=== PATIENT | female | born 1945 | race Caucasian/White ===

== ENCOUNTER 2017-10-12 07:49 | Outpatient (CLI) | payer MEDICARE, MEDICAID | END 2017-10-12 07:50 | disposition home or self-care (01) | LOC: BICULT 07:49 | PROVIDERS: ATTEND Internal Medicine Gastroenterology | DX: K76.0 Fatty (change of) liver, not elsewhere classified (principal); K74.60 Unspecified cirrhosis of liver; R13.10 Dysphagia, unspecified; Z90.49 Acquired absence of other specified parts of digestive tract | CPT/HCPCS: 76705 ==

== ENCOUNTER 2017-11-02 10:14 | Outpatient (CLI) | payer MEDICARE, MEDICAID | END 2017-11-02 10:15 | disposition home or self-care (01) | LOC: BICMAMMO 10:14 | PROVIDERS: ATTEND Family Medicine | DX: Z12.31 Encounter for screening mammogram for malignant neoplasm of breast (principal); R92.1 Mammographic calcification found on diagnostic imaging of breast | CPT/HCPCS: 77063; 77067 ==

== ENCOUNTER 2018-02-28 10:37 | Outpatient (CLI) | payer MEDICARE, MEDICAID ==
--- NOTE | 2018-02-28 12:49 | ULT ---
BILATERAL RENAL ULTRASOUND: HISTORY: Dysuria. FINDINGS: The right kidney measures 9.3 cm in length and the left kidney measures 9.6 cm. No focal mass or hyd ronephrosis is seen on either side. Cortical echogenicity and thickness is normal. The urinary blad kristine is unremarkable. Prevoid volume of 97 cc and complete emptying noted on the postvoid scan. IMPRESSION: Unremarkable exam. POS: OFF
== END 2018-02-28 10:38 | disposition home or self-care (01) ==
LOC: SCSULT 10:37
PROVIDERS: ATTEND Urology
DX: R30.0 Dysuria (principal); Z87.440 Personal history of urinary (tract) infections
CPT/HCPCS: 76770

== ENCOUNTER 2018-07-12 19:30 | Outpatient (CLI) | payer MEDICARE, MEDICAID | END 2018-07-12 19:31 | disposition home or self-care (01) | LOC: SLEEPLAB 19:30 | PROVIDERS: ATTEND Family Medicine | DX: G47.33 Obstructive sleep apnea (adult) (pediatric) (principal); R53.83 Other fatigue; R06.83 Snoring; I10 Essential (primary) hypertension; F41.9 Anxiety disorder, unspecified; G47.10 Hypersomnia, unspecified; K21.9 Gastro-esophageal reflux disease without esophagitis; E11.9 Type 2 diabetes mellitus without complications; G47.00 Insomnia, unspecified; G47.61 Periodic limb movement disorder; Z68.28 Body mass index [BMI] 28.0-28.9, adult | CPT/HCPCS: 95810 ==

== ENCOUNTER 2018-08-08 08:09 | Outpatient (CLI) | payer MEDICARE, MEDICAID ==
--- NOTE | 2018-08-08 09:43 | ULT ---
HEPATIC ULTRASOUND: Indications: Cirrhosis. FINDINGS: Patient is post cholecystectomy. The liver is echogenic consistent with history of cirrhosis. No focal mass lesion is identified. Color doppler and spectral analysis performed of the hepatic ducts. There is normal blood flow seen i n the portal veins, hepatic artery, splenic artery and splenic veins. The spleen is unremarkable and normal size measuring 7-8 cm. Pancreas is partially imaged and appears unremarkable as visualized. Kidneys are not evaluated. Aorta and IVC are not imaged. Common duct is normal caliber is 4 mm. IMPRESSION: The liver is mildly echogenic consistent with the history of cirrhosis. Hepatic doppler studies show normal hepatic blood flow. POS: [facility]
== END 2018-08-08 08:10 | disposition home or self-care (01) ==
LOC: SCSULT 08:09
PROVIDERS: ATTEND Internal Medicine Gastroenterology
DX: K74.60 Unspecified cirrhosis of liver (principal)
CPT/HCPCS: 76705

== ENCOUNTER 2019-03-27 09:39 | Outpatient (CLI) | payer MEDICARE, MEDICAID ==
--- NOTE | 2019-03-27 12:08 | ULT ---
HEPATIC ULTRASOUND WITH DOPPLER: Date: 03/27/19 INDICATION: Fatty liver. Cirrhosis. FINDINGS: Liver is echogenic, consistent with fatty infiltration. The liver is somewhat heterogeneous with nodu lar appearing areas. Liver is enlarged, measuring 17-18 cm. Patient is post cholecystectomy. Common bile duct is normal caliber at 4 mm. The spleen is unremarkab le in size and appearance. Visualized aorta unremarkable. The pancreas is mostly obscured. Color Doppler and spectral analysis performed on the hepatic vessels. Portal veins, hepatic veins, he patic artery, splenic vein, and splenic artery all show normal blood flow with spectral analysis. IMPRESSION: Liver is enlarged, echogenic, and mildly heterogeneous. Normal blood flow is seen in the hepatic vess els. POS: OFF
== END 2019-03-27 09:40 | disposition home or self-care (01) ==
LOC: SCSULT 09:39
PROVIDERS: ATTEND Internal Medicine Gastroenterology
DX: K74.60 Unspecified cirrhosis of liver (principal); K76.0 Fatty (change of) liver, not elsewhere classified; R16.0 Hepatomegaly, not elsewhere classified; K76.9 Liver disease, unspecified
CPT/HCPCS: 76705

== ENCOUNTER 2019-11-29 10:30 | Outpatient (CLI) | payer MEDICARE, MEDICAID ==
--- NOTE | 2019-11-29 15:01 | ULT ---
HEPATIC ULTRASOUND WITH DOPPLER: 11/29/19 INDICATIONS: Fatty liver. The patient is status post cholecystectomy. The common bile duct is normal caliber measured at 5 to 6 mm. The liver is mildly enlarged measuring 17 cm. The liver shows increased echogenicity consistent with fatty infiltration. No focal liver mass lesion. Doppler studies with spectral analysis performed on the hepatic vessels. Normal flow is seen in the h epatic veins, portal veins, hepatic artery, and splenic vein. The pancreas is obscured. IMPRESSION: Borderline hepatomegaly. Increased hepatic echogenicity consistent with hepatic steatosis. Doppler st udy showed normal hepatopetal blood flow. POS: [facility]
== END 2019-11-29 10:31 | disposition home or self-care (01) ==
LOC: BICULT 10:30 → SCSULT 10:31
PROVIDERS: ATTEND Internal Medicine Gastroenterology
DX: K76.0 Fatty (change of) liver, not elsewhere classified (principal); K21.9 Gastro-esophageal reflux disease without esophagitis; R16.0 Hepatomegaly, not elsewhere classified; R93.2 Abnormal findings on diagnostic imaging of liver and biliary tract
CPT/HCPCS: 76705

== ENCOUNTER 2020-06-16 11:49 | Outpatient (CLI) | payer MEDICARE, MEDICAID ==
--- NOTE | 2020-06-16 14:23 | MMO ---
Bilateral MAMMO Bilat Screen [facility]. CLINICAL HISTORY: Patient is 75 years old and is seen for screening. The patient has no family history of breast cancer. The patient has no personal history of cancer. The patient has a history of left Excisional Biopsy in ? - benign. VIEWS: The views performed were: bilateral craniocaudal with tomosynthesis and bilateral mediolateral oblique with tomosynthesis. FILMS COMPARED: The present examination has been compared to prior imaging studies performed at [facility] on 08/15/2014, 08/19/2015, 08/25/2016 and 11/02/2017. This study has been interpreted with the assistance of computer-aided detection. MAMMOGRAM FINDINGS: The breasts are heterogeneously dense, which could obscure a lesion on mammography. Benign calcifications are noted bilaterally. There are no suspicious masses, suspicious calcifications, or new areas of architectural distortion. IMPRESSION: THERE IS NO MAMMOGRAPHIC EVIDENCE OF MALIGNANCY. A ROUTINE FOLLOW-UP MAMMOGRAM IN 1 YEAR IS RECOMMENDED. THE RESULTS OF THIS EXAM WERE SENT TO THE PATIENT. ACR BI-RADS Category 2 - Benign finding MAMMOGRAPHY NOTE: 1. A negative mammogram report should not delay a biopsy if a dominant of clinically suspicious mass is present. 2. Approximately 10% to 15% of breast cancers are not detected by mammography. 3. Adenosis and dense breasts may obscure an underlying neoplasm. Reported by: CLARK ABDUL MD Electonically Signed: [id number]
== END 2020-06-16 11:50 | disposition home or self-care (01) ==
LOC: BICMAMMO 11:49
PROVIDERS: ATTEND Family Medicine
DX: Z12.31 Encounter for screening mammogram for malignant neoplasm of breast (principal); Z91.89 Other specified personal risk factors, not elsewhere classified
CPT/HCPCS: 77063; 77067

== ENCOUNTER 2020-11-13 07:47 | Outpatient (CLI) | payer MEDICARE, MEDICAID | END 2020-11-13 07:48 | disposition home or self-care (01) | LOC: BICULT 07:47 | PROVIDERS: ATTEND Physician Assistant Medical | DX: R10.13 Epigastric pain (principal); K74.60 Unspecified cirrhosis of liver; K21.9 Gastro-esophageal reflux disease without esophagitis; R11.0 Nausea; R93.5 Abnormal findings on diagnostic imaging of other abdominal regions, including retroperitoneum | CPT/HCPCS: 93975 ==

== ENCOUNTER 2021-07-29 07:33 | Outpatient (CLI) | payer MEDICARE, MEDICAID | END 2021-07-29 07:34 | disposition home or self-care (01) | LOC: ULT 07:33 | PROVIDERS: ATTEND Physician Assistant Medical | DX: K74.60 Unspecified cirrhosis of liver (principal); R93.2 Abnormal findings on diagnostic imaging of liver and biliary tract; Z90.49 Acquired absence of other specified parts of digestive tract | CPT/HCPCS: 76705 ==

== ENCOUNTER 2021-12-21 10:50 | Outpatient (CLI) | payer MEDICARE, MEDICAID | END 2021-12-21 10:51 | disposition home or self-care (01) | LOC: BICULT 10:50 | PROVIDERS: ATTEND Physician Assistant Medical | DX: K74.60 Unspecified cirrhosis of liver (principal); K21.9 Gastro-esophageal reflux disease without esophagitis; Z12.11 Encounter for screening for malignant neoplasm of colon | CPT/HCPCS: 76705 ==

== ENCOUNTER 2021-12-28 11:51 | Outpatient (CLI) | payer MEDICARE, MEDICAID | END 2021-12-28 11:52 | disposition home or self-care (01) | LOC: BICRAD 11:51 | PROVIDERS: ATTEND Family Medicine | DX: M25.531 Pain in right wrist (principal); R07.89 Other chest pain ==

== ENCOUNTER 2022-08-14 02:40 | Inpatient (IN) | payer OTHER, MEDICAID ==
[2022-08-14] MEDS ORDERED: Dextrose 50% Abboject 50 ML SYRINGE SLOW IVP PRN (04:03)
[2022-08-14] MEDS ORDERED: Ondansetron ODT 4 MG TAB PO PRN (04:03)
[2022-08-14] MEDS ORDERED: Morphine 2 MG/ML VIAL SLOW IVP PRN (04:03)
[2022-08-14] MEDS ORDERED: hydrALAZINE 20 MG/ML VIAL SLOW IVP PRN (04:03)
[2022-08-14] MEDS ORDERED: Insulin Regular 300 UNITS/3 ML VIAL SC PRN ×2 (04:03)
[2022-08-14] MEDS ORDERED: Ipratropium/Albuterol 3 ML NEB NEB PRN (04:03)
[2022-08-14] MEDS ORDERED: Dextrose 5% in Water 1,000 ML IV PRN (04:03)
[2022-08-14 04:07] VITALS: BMI 21.7
[2022-08-14] MEDS ORDERED: Cyclobenzaprine 10 MG TAB PO PRN (04:14)
[2022-08-14] MEDS: Sodium Chloride 0.9% 1,000 ML IV SCH ×2 (04:27→17:56)
[2022-08-14] MEDS ORDERED: Promethazine HCl 25 MG/ML VIAL IM PRN (04:30)
[2022-08-14] MEDS: Ondansetron PF 4 MG/2 ML Vial IVP PRN (04:37)
[2022-08-14] MEDS: traMADol HCl 50 MG TAB PO SCH ×4 (04:56→23:27)
[2022-08-14] MEDS: Acetaminophen 500 MG TAB PO SCH ×4 (04:56→23:27)
[2022-08-14] MEDS: Morphine 4 MG/ML VIAL SLOW IVP PRN (05:50)
[2022-08-14 06:15] LABS: Hemoglobin A1c 6.2 % (4.0-6.0)
[2022-08-14 06:16] LABS: #Basophils 0.1 thou/uL (0.0-0.2); #Lymphocytes 1.8 thou/uL (1.20-3.40); #Monocytes 1.2 thou/uL (0.11-0.59); #Neutrophils 11.4 thou/uL (1.40-6.50); %Basophils 0.6 % (0.0-1.0); %Eosinophils 0.1 % (0.0-10.0); %Lymphocytes 12.5 % (21.0-51.0); %Monocytes 8.2 % (0.0-10.0); %Neutrophils 78.5 % (42.0-75.0); Hemoglobin 13.6 g/dL (12.0-16.0); Mean Corpuscular HGB CONC 33.6 g/dL (32.0-36.0); Mean Corpuscular Hemoglobin 33.7 pg (27.0-31.0); Platelet Count 211 10x3/uL (130-400); RBC Distribution Width 11.3 % (11.5-14.5); Red Blood Cell (RBC) Count 4.03 mill/uL (4.20-5.40); White Blood Cell (WBC) Count 14.6 10x3/uL (4.8-10.8)
[2022-08-14 06:34] LABS: Anion Gap 16 mmol/L (10-20); BUN (Urea Nitrogen) 24 mg/dL (9.8-20.1); Calc. Creatinine Clearance 36 mL/min (70-130); Calcium 9.3 mg/dL (7.8-10.44); Carbon Dioxide 18 mmol/L (23-31); Chloride 104 mmol/L (98-107); Estimated GFR 37; Glucose 234 mg/dL (83-110); Magnesium 2.1 mg/dL (1.6-2.6); Phosphorus 2.3 mg/dL (2.3-4.7); Sodium 134 mmol/L (136-145)
[2022-08-14] MEDS ORDERED: FLU VACC QS2022-23(65YR UP)/PF 240 MCG/0.7 ML SYRINGE IM ONE (09:00)
[2022-08-14] MEDS ORDERED: Famotidine 20 MG TAB PO SCH (09:00)
[2022-08-14] MEDS: hydrALAZINE 25 MG TAB PO SCH ×2 (10:35→21:13)
[2022-08-14] MEDS: Senokot S 8.6-50 MG TAB PO SCH ×2 (10:36→21:15)
[2022-08-14] MEDS ORDERED: Tranexamic Acid 1,000 MG/10 ML VIAL ONE (11:28)
[2022-08-14] MEDS ORDERED: CEFAZOLIN 2 GM VIAL ONE (11:28)
[2022-08-14] MEDS ORDERED: Sodium Chloride 0.9% 100 ML ONE ×2 (11:28→11:29)
[2022-08-14] MEDS ORDERED: Vancomycin (BATCH) 1.5 GRAM/300 ML BAG ONE (11:29)
[2022-08-14] MEDS ORDERED: fentaNYL PF 100 MCG/2 ML SYRINGE ONE (12:09)
[2022-08-14] MEDS ORDERED: Glycopyrrolate 0.2 MG/ML 5 ML SYRINGE ONE (12:18)
[2022-08-14] MEDS ORDERED: diphenhydrAMINE 50 MG/ML VIAL ONE (12:18)
[2022-08-14] MEDS ORDERED: PHENYLEPHRINE-NS 100 MCG/ML 10 ML SYRINGE ONE (12:18)
[2022-08-14] MEDS ORDERED: PROPOFOL 200 MG/20 ML VIAL ONE (12:18)
[2022-08-14] MEDS ORDERED: Rocuronium Bromide 10 MG/ML (10ML VIAL) ONE (12:18)
[2022-08-14] MEDS ORDERED: Ondansetron PF 4 MG/2 ML Vial ONE (12:18)
[2022-08-14] MEDS ORDERED: Ketorolac Tromethamine 30 MG/ML VIAL ONE (12:18)
[2022-08-14] MEDS ORDERED: NEOSTIGMINE 3 MG/3 ML SYR 3 MG/3 ML SYRINGE ONE (12:18)
[2022-08-14] MEDS ORDERED: Ondansetron HCl/PF 4 MG/2 ML Vial IVP PRN (14:18)
[2022-08-14] MEDS ORDERED: PACU-Morphine 4MG/ML VIAL SLOW IVP PRN (14:18)
[2022-08-14] MEDS ORDERED: Fentanyl 100 MCG/2 ML VIAL ONE (14:49)
[2022-08-14] MEDS: Ferrous Sulfate 325 MG TAB PO SCH (16:14)
[2022-08-14] MEDS: Ascorbic Acid 500 mg Chewable Tablet PO SCH (21:15)
[2022-08-14] MEDS: Montelukast Sodium 10 mg Tablet PO SCH (21:15)
[2022-08-14] MEDS: CEFAZOLIN 2 GM in Sodium Chloride 0.9% 100 ML IVPB SCH (21:16)
[2022-08-15] MEDS: Acetaminophen 500 MG TAB PO SCH ×4 (04:57→22:19)
[2022-08-15] MEDS: traMADol HCl 50 MG TAB PO SCH ×4 (04:58→21:41)
[2022-08-15] MEDS: CEFAZOLIN 2 GM in Sodium Chloride 0.9% 100 ML IVPB SCH (04:58)
[2022-08-15 05:56] LABS: #Basophils 0.1 thou/uL (0.0-0.2); #Eosinphils 0.1 thou/uL (0.0-0.7); #Lymphocytes 2.3 thou/uL (1.20-3.40); #Monocytes 1.4 thou/uL (0.11-0.59); #Neutrophils 7.9 thou/uL (1.40-6.50); %Basophils 0.6 % (0.0-1.0); %Lymphocytes 19.3 % (21.0-51.0); %Monocytes 12.2 % (0.0-10.0); %Neutrophils 66.9 % (42.0-75.0); Hemoglobin 11.3 g/dL (12.0-16.0); Mean Corpuscular HGB CONC 33.7 g/dL (32.0-36.0); Mean Corpuscular Hemoglobin 34.3 pg (27.0-31.0); Mean Platelet Volume 7.8 fL (7.4-10.4); Platelet Count 183 10x3/uL (130-400); RBC Distribution Width 11.4 % (11.5-14.5); Red Blood Cell (RBC) Count 3.31 mill/uL (4.20-5.40); White Blood Cell (WBC) Count 11.7 10x3/uL (4.8-10.8)
[2022-08-15 06:22] LABS: Anion Gap 14 mmol/L (10-20); BUN (Urea Nitrogen) 16 mg/dL (9.8-20.1); Calc. Creatinine Clearance 42 mL/min (70-130); Calcium 8.4 mg/dL (7.8-10.44); Carbon Dioxide 15 mmol/L (23-31); Chloride 109 mmol/L (98-107); Estimated GFR 45; Glucose 136 mg/dL (83-110); Phosphorus 2.7 mg/dL (2.3-4.7); Potassium 4.3 mmol/L (3.5-5.1); Sodium 134 mmol/L (136-145)
[2022-08-15 06:53] LABS: Magnesium 1.9 mg/dL (1.6-2.6)
[2022-08-15] MEDS ORDERED: PHOS-NAK 1 PKT PACK PO SCH (08:15)
[2022-08-15] MEDS: Ferrous Sulfate 325 MG TAB PO SCH ×2 (08:35→17:01)
[2022-08-15] MEDS: Senokot S 8.6-50 MG TAB PO SCH ×2 (08:35→21:41)
[2022-08-15] MEDS: hydrALAZINE 25 MG TAB PO SCH ×2 (08:38→22:32)
[2022-08-15] MEDS: traMADol HCl 50 MG TAB PO PRN ×2 (10:59→17:01)
[2022-08-15] MEDS: Morphine 4 MG/ML VIAL SLOW IVP PRN (14:05)
[2022-08-15] MEDS: Gabapentin 100 MG CAP PO SCH ×2 (17:00→21:40)
[2022-08-15] MEDS: Ascorbic Acid 500 mg Chewable Tablet PO SCH (21:40)
[2022-08-15] MEDS: Rosuvastatin 20 MG TAB PO SCH (21:42)
[2022-08-15] MEDS: Montelukast Sodium 10 mg Tablet PO SCH (21:43)
[2022-08-15] MEDS: Pentazocine HCl/Naloxone HCl 50/0.5 MG TAB PO SCH (22:37)
[2022-08-16] MEDS: traMADol HCl 50 MG TAB PO SCH ×4 (04:15→22:18)
[2022-08-16] MEDS: Acetaminophen 500 MG TAB PO SCH ×4 (04:16→22:19)
[2022-08-16 05:16] LABS: #Basophils 0.1 thou/uL (0.0-0.2); #Eosinphils 0.3 thou/uL (0.0-0.7); #Lymphocytes 2.9 thou/uL (1.20-3.40); #Monocytes 1.8 thou/uL (0.11-0.59); #Neutrophils 8.1 thou/uL (1.40-6.50); %Basophils 0.7 % (0.0-1.0); %Eosinophils 2.5 % (0.0-10.0); %Lymphocytes 21.6 % (21.0-51.0); %Monocytes 13.6 % (0.0-10.0); %Neutrophils 61.5 % (42.0-75.0); Hemoglobin 10.4 g/dL (12.0-16.0); Mean Corpuscular HGB CONC 33.4 g/dL (32.0-36.0); Mean Platelet Volume 7.7 fL (7.4-10.4); Platelet Count 155 10x3/uL (130-400); RBC Distribution Width 11.2 % (11.5-14.5); Red Blood Cell (RBC) Count 3.05 mill/uL (4.20-5.40); White Blood Cell (WBC) Count 13.2 10x3/uL (4.8-10.8)
[2022-08-16 05:33] LABS: Anion Gap 10 mmol/L (10-20); BUN (Urea Nitrogen) 12 mg/dL (9.8-20.1); Calc. Creatinine Clearance 44 mL/min (70-130); Calcium 8.4 mg/dL (7.8-10.44); Carbon Dioxide 24 mmol/L (23-31); Chloride 105 mmol/L (98-107); Estimated GFR 47; Glucose 123 mg/dL (83-110); Phosphorus 2.8 mg/dL (2.3-4.7); Potassium 3.8 mmol/L (3.5-5.1); Sodium 135 mmol/L (136-145)
[2022-08-16] MEDS: Aspirin 81 mg Enteric Coated Tablet PO SCH ×2 (10:00→22:14)
[2022-08-16] MEDS: Senokot S 8.6-50 MG TAB PO SCH ×2 (10:01→22:16)
[2022-08-16] MEDS: hydrALAZINE 25 MG TAB PO SCH ×2 (10:01→22:16)
[2022-08-16] MEDS: Pentazocine HCl/Naloxone HCl 50/0.5 MG TAB PO SCH (10:02)
[2022-08-16] MEDS: Gabapentin 100 MG CAP PO SCH ×3 (10:02→22:14)
[2022-08-16] MEDS: Ferrous Sulfate 325 MG TAB PO SCH ×2 (10:02→17:53)
[2022-08-16] MEDS: Rosuvastatin 20 MG TAB PO SCH (22:13)
[2022-08-16] MEDS: Montelukast Sodium 10 mg Tablet PO SCH (22:14)
[2022-08-16] MEDS: Ascorbic Acid 500 mg Chewable Tablet PO SCH (22:15)
[2022-08-17] MEDS: Pentazocine HCl/Naloxone HCl 50/0.5 MG TAB PO SCH ×2 (04:31→09:30)
[2022-08-17] MEDS: Acetaminophen 500 MG TAB PO SCH ×4 (04:36→21:03)
[2022-08-17] MEDS: traMADol HCl 50 MG TAB PO SCH ×4 (04:36→21:04)
[2022-08-17] MEDS: Ferrous Sulfate 325 MG TAB PO SCH ×2 (09:29→16:00)
[2022-08-17] MEDS: Gabapentin 100 MG CAP PO SCH ×3 (09:29→21:08)
[2022-08-17] MEDS: Senokot S 8.6-50 MG TAB PO SCH ×2 (09:30→21:05)
[2022-08-17] MEDS: Aspirin 81 mg Enteric Coated Tablet PO SCH ×2 (09:30→21:03)
[2022-08-17] MEDS: hydrALAZINE 25 MG TAB PO SCH (09:33)
[2022-08-17] MEDS: Ondansetron PF 4 MG/2 ML Vial IVP PRN (10:36)
[2022-08-17] MEDS: Rosuvastatin 20 MG TAB PO SCH (21:03)
[2022-08-17] MEDS: Ascorbic Acid 500 mg Chewable Tablet PO SCH (21:04)
[2022-08-17] MEDS: Montelukast Sodium 10 mg Tablet PO SCH (21:04)
[2022-08-18] MEDS: hydrALAZINE 25 MG TAB PO SCH ×2 (00:43→09:07)
[2022-08-18] MEDS: Pentazocine HCl/Naloxone HCl 50/0.5 MG TAB PO SCH ×2 (00:43→09:10)
[2022-08-18] MEDS: Acetaminophen 500 MG TAB PO SCH ×3 (04:21→15:59)
[2022-08-18] MEDS: traMADol HCl 50 MG TAB PO SCH ×3 (04:22→16:00)
[2022-08-18] MEDS ORDERED: Bisacodyl 10 MG SUPP PR PRN (08:16)
[2022-08-18] MEDS: Aspirin 81 mg Enteric Coated Tablet PO SCH (09:06)
[2022-08-18] MEDS: Senokot S 8.6-50 MG TAB PO SCH (09:06)
[2022-08-18] MEDS: Gabapentin 100 MG CAP PO SCH ×2 (09:07→15:59)
[2022-08-18] MEDS: Ferrous Sulfate 325 MG TAB PO SCH ×2 (09:07→17:42)
[2022-08-18 13:33] VITALS: BP 151/67; TEMP 98.1
== END 2022-08-18 18:30 | DRG 522 ==
LOC: SURG A 03:47
PROVIDERS: ADMIT Specialist; ATTEND Specialist
PROC: 0SR90JZ Replacement of Right Hip Joint with Synthetic Substitute, Open Approach (ICD-10-PCS; principal; 2022-08-14)
DX: S72.011A Unspecified intracapsular fracture of right femur, initial encounter for closed fracture (principal); N17.9 Acute kidney failure, unspecified; D62 Acute posthemorrhagic anemia; K21.9 Gastro-esophageal reflux disease without esophagitis; F32.A Depression, unspecified; F41.9 Anxiety disorder, unspecified; K74.60 Unspecified cirrhosis of liver; E78.5 Hyperlipidemia, unspecified; Z96.643 Presence of artificial hip joint, bilateral; Z20.822 Contact with and (suspected) exposure to COVID-19; E11.65 Type 2 diabetes mellitus with hyperglycemia; W19.XXXA Unspecified fall, initial encounter; Y92.9 Unspecified place or not applicable; Z90.49 Acquired absence of other specified parts of digestive tract; Z98.890 Other specified postprocedural states; Z91.013 Allergy to seafood; Z90.710 Acquired absence of both cervix and uterus; Z88.5 Allergy status to narcotic agent
CPT/HCPCS: 36415; 36416; 72170; 80048; 83036; 83735; 84100; 85025; C1713; C1776; J1200; J1885; J2270; J2405; J2704; J3010; J3370; J3490; J7050; Q0162

== ENCOUNTER 2023-02-23 08:42 | Outpatient (CLI) | payer OTHER, MEDICAID | END 2023-02-23 08:43 | disposition home or self-care (01) | LOC: SCSMRI 08:42 | PROVIDERS: ATTEND Physician Assistant Medical | DX: K74.60 Unspecified cirrhosis of liver (principal); R93.5 Abnormal findings on diagnostic imaging of other abdominal regions, including retroperitoneum; R10.10 Upper abdominal pain, unspecified; R19.7 Diarrhea, unspecified | CPT/HCPCS: 74183 ==

== ENCOUNTER 2025-03-03 10:00 | Outpatient (CLI) | payer OTHER, MEDICAID | END 2025-03-03 10:01 | disposition home or self-care (01) | LOC: BICMAMMO 10:00 | PROVIDERS: ATTEND Family Medicine | DX: Z12.31 Encounter for screening mammogram for malignant neoplasm of breast (principal); M81.0 Age-related osteoporosis without current pathological fracture; M85.89 Other specified disorders of bone density and structure, multiple sites; Z91.89 Other specified personal risk factors, not elsewhere classified | CPT/HCPCS: 77063; 77067; 77080 ==